=== PATIENT | female | born 1980 | race Caucasian/White ===

== ENCOUNTER → 2017-03-22 | Outpatient (CLI) | payer OTHER ==
[~2017-03-22] MED LIST: ACET50TA PO; MACR100C43 PO; VICO5TAB
--- NOTE | 2017-03-22 19:11 | REP ---
MR angiography the brain without contrast: History: Migraine . 20-year history of headaches. Positive family history of intracranial vascular abnormalities. Technique: 3-D [id number] MR angiography of the brain is acquired in the usual fashion and maximal intensity projection images were generated in rotational format about the vertical and horizontal axes. In addition, source axial T1-weighted images are viewed in cine mode. MR angiographic findings: The distal vertebral arteries are patent and co-dominant. Basilar artery is a little tortuous but widely patent. The posterior cerebral and superior cerebellar vessels are normal and symmetric. The distal internal carotid arteries are unremarkable. Anterior and middle cerebral arteries appear intact. There is no visible amos aneurysm or arteriovenous malformation. Impression: Unremarkable MR angiography the brain. Signed by Matthew Barry MD 03/22/2017 07:03 P
== END ==
LOC: M RAD 17:29
PROVIDERS: ATTEND Family Medicine
DX: G43.909 Migraine, unspecified, not intractable, without status migrainosus (principal)

== ENCOUNTER → 2017-11-19 | Outpatient (CLI) | payer OTHER | LOC: M RAD 12:36 | DX: N60.32 Fibrosclerosis of left breast (principal) | CPT/HCPCS: 77066 ==

== ENCOUNTER → 2019-08-12 | Outpatient (CLI) | payer OTHER ==
[~2019-08-12] MED LIST changes: -ACET50TA PO; +MAPA500T2 PO
--- NOTE | 2019-08-12 12:46 | REPMRS ---
Patient History The patient states she has not had a clinical breast exam in over a year. Family history of breast cancer at age 25 in mother, endometrial cancer in mother, breast cancer in maternal aunt, unknown cancer in father, ovarian cancer in paternal grandmother, ovarian cancer at age 40 in paternal aunt. Benign stereotatic breast biopsy of the right breast, August 27, 2012. Taking hormonal contraceptives for 4 years. Digital Mammo Screening Bilat: August 12, 2019 - Exam #: [id number] Bilateral CC and MLO view(s) were taken. Technologist: Rere Walsh, Technologist Prior study comparison: November 19, 2017, digital mammo diagnostic bilateral performed at [facility]. July 23, 2012, digital mammo diagnostic bilateral performed at [facility]. July 23, 2012, bilateral breast real time ultrasound performed at [facility]. August 30, 2011, bilateral digital mammo screening bilat performed at [facility]. FINDINGS: There are scattered fibroglandular densities. There is a needle biopsy marker clip again noted projecting in the upper outer quadrant of the right breast. There is a 5 mm neodensity projecting in the upper outer quadrant of the left breast which merits further evaluation. There has been no change in the appearance of the mammogram from the prior studies. There is a mild amount of scattered fibroglandular density which is fairly symmetric. There is no interval development of dominant mass, architectural distortion, or grouped microcalcification suggestive of malignancy. Assessment: BI-RADS/ACR category 0 mammogram, Incomplete: Need additional imaging evaluation and/or prior mammograms for comparison. Recommendation Ultrasound and special view mammogram of the left breast. This patient's Lifetime Breast Cancer Risk is estimated at 31.6 %. Annual screening Breast MRI scanniing is recommended for patient's whose lifetime risk assessment is over 20%. This mammogram was interpreted with the aid of an FDA-approved computer-aided dectection system. Breast MRI of both breasts in 6 months. Electronically Signed By: Casper Barry MD 08/12/19 [id number]
== END ==
LOC: M RAD 10:19
PROVIDERS: ATTEND Nurse Practitioner Primary Care
DX: Z12.31 Encounter for screening mammogram for malignant neoplasm of breast (principal); Z80.3 Family history of malignant neoplasm of breast; Z79.899 Other long term (current) drug therapy

== ENCOUNTER → 2019-08-28 | Outpatient (CLI) | payer OTHER ==
--- NOTE | 2019-08-28 11:49 | REP ---
Digital diagnostic unilateral left breast mammography with CAD, 3-D tomography, and focused left breast sonography. Findings: Screening mammography from August 24, 2019 was BIRADS category 0 incomplete because of a nodular neodensity 5 mm in diameter projecting in the upper outer quadrant. Diagnostic imaging was recommended. Mammographic findings: Magnified focal spot images of the left breast were obtained along with a true mediolateral projection with tomography. A 5 mm well circumscribed relatively low density nodule persists in the upper outer quadrant. No other mammographic finding. Sonographic findings: The left breast is scanned from 12 o'clock to 3 o'clock through the upper outer quadrant. There is a 5 mm oval-shaped cyst visible at 1 o'clock which is felt to account for the mammographic opacity. Heterogeneous fibroglandular background echotexture is seen. No other significant sonographic finding. Impression: BIRADS 2: BI-RADS/ACR category 2 mammogram. Benign Findings. Simple cyst identified in the left breast upper outer quadrant felt to account for the mammographic opacity. Repeat screening bilateral mammography recommended 1 year. This mammogram was interpreted with the aid of an FDA-approved computer-aided detection system. The patient states that she/he has not had a clinical breast exam in over a year. The patient letter being requested is m1. Electronically Signed by Matthew Barry MD 08/28/2019 06:36 P
== END ==
LOC: M RAD 09:10
PROVIDERS: ATTEND Nurse Practitioner Primary Care
DX: R92.2 Inconclusive mammogram (principal)

== ENCOUNTER → 2020-12-28 | Outpatient (CLI) | payer OTHER ==
--- NOTE | 2020-12-28 14:19 | REPMRS ---
Patient History The patient states she has not had a clinical breast exam in over a year. Family history of breast cancer at age 25 in mother, endometrial cancer in mother, breast cancer in maternal aunt, unknown cancer in father, ovarian cancer in paternal grandmother, ovarian cancer at age 40 in paternal aunt. Benign stereotatic breast biopsy of the right breast, August 27, 2012. Taking hormonal contraceptives for 4 years. Patient states no breast complaints today. Patient has signed MRS History Sheet. Digital Woman Screen Mammo: December 28, 2020 - Exam #: [id number] Bilateral CC and MLO view(s) were taken. Technologist: Rere Walsh, Technologist Prior study comparison: August 28, 2019, left breast digital mammo diagnostic unilateral, performed at [facility]. August 12, 2019, bilateral digital mammo screening bilat, performed at [facility]. November 19, 2017, digital mammo diagnostic bilateral, performed at [facility]. July 23, 2012, digital mammo diagnostic bilateral, performed at [facility]. FINDINGS: There are scattered fibroglandular densities. The Volpara volumetric breast density category is:B. Previously noted left breast cyst is again seen unchanged. A marker clip is again noted in the right breast. There has been no change in the appearance of the mammogram from the prior studies. There is a mild amount of scattered fibroglandular density which is fairly symmetric. There is no interval development of dominant mass, architectural distortion, or grouped microcalcification suggestive of malignancy. 3-D tomosynthesis shows no additional findings. Assessment: BI-RADS/ACR category 2 mammogram. Benign Findings. Recommendation Breast MRI of both breasts in 6 months. Routine screening mammogram of both breasts in 1 year (for women over age 40). This patient's [facility] Lifetime Breast Cancer Risk is estimated at 30.4 %. Patients whose estimated lifetime breast cancer risk assessment is greater than 20% merit annual screening breast MRI scanning in addition to annual mammography. This mammogram was interpreted with the aid of an FDA-approved computer-aided dectection system. Electronically Signed By: Casper Barry MD 12/28/20 [id number]
== END ==
LOC: M WHC 11:18
PROVIDERS: ATTEND Nurse Practitioner Primary Care
DX: Z12.31 Encounter for screening mammogram for malignant neoplasm of breast (principal); Z80.3 Family history of malignant neoplasm of breast

== ENCOUNTER 2021-04-13 10:37 | Emergency (ER) | payer OTHER ==
[~2021-04-13] VITALS: Ht 154.9 cm; Wt 64.0 kg
[2021-04-13] MEDS ORDERED: ZYRTTAB8 PO (11:01)
[2021-04-13] MEDS ORDERED: TOPI50TA9 (11:01)
[2021-04-13] MEDS ORDERED: TOPI100T9 (11:01)
[2021-04-13] MEDS ORDERED: PERCOCET 5MG/325MG TAB PO ONE (17:00)
[2021-04-13] MEDS ORDERED: ONDANSETRON 4MG/2ML VIAL IV ONE (17:00)
[2021-04-13] MEDS ORDERED: NS 1,000 ML IV ONE (17:00)
[2021-04-13 17:40] LABS: BASO # 0.1 10^3/uL (0.0-0.2); EOS # 0.2 10^3/uL (0.0-0.5); EOS % 1.6 % (0.0-3.0); HEMATOCRIT 49.6 % (36.0-47.0); HEMOGLOBIN 16.4 g/dl (12.0-15.5); LYMPH # 2.7 10^3/uL (1.5-5.0); LYMPH % 28.1 % (24.0-44.0); MEAN CORPUSCULAR HEMOGLOBIN 31.1 pg (27.0-33.0); MEAN CORPUSCULAR HGB CONC 33.1 g/dl (32.0-36.5); MEAN CORPUSCULAR VOLUME 94.1 fl (80.0-96.0); MONO # 0.5 10^3/uL (0.0-0.8); MONO % 5.2 % (2.0-8.0); NEUTROPHILS # 6.1 10^3/uL (1.5-8.5); NEUTROPHILS % 63.7 % (36.0-66.0); PLATELET COUNT, AUTOMATED 309 10^3/uL (150-450); RED BLOOD COUNT 5.27 10^6/uL (4.00-5.40); WHITE BLOOD COUNT 9.6 10^3/uL (4.0-10.0)
--- NOTE | 2021-04-13 18:14 | REPVR ---
PROCEDURE INFORMATION: Exam: CT Head Without Contrast Exam date and time: 04/13/2021 5:26 PM Age: 40 years old Clinical indication: Other: Headache/blurred vision TECHNIQUE: Imaging protocol: Computed tomography of the head without contrast. Radiation optimization: All CT scans at this facility use at least one of these dose optimization techniques: automated exposure control; mA and/or kV adjustment per patient size (includes targeted exams where dose is matched to clinical indication); or iterative reconstruction. COMPARISON: MRA BRAIN W/O CONTRAST 03/22/2017 5:35 PM FINDINGS: Brain: No acute intracranial hemorrhage, cerebral edema, or midline shift. Cerebral ventricles: No hydrocephalus. Paranasal sinuses: There is no acute sinusitis. Mastoid air cells: Visualized mastoid air cells are well aerated. Orbital cavity: Unremarkable as visualized. Bones/joints: No acute fracture. Soft tissues: Unremarkable. IMPRESSION: No acute intracranial abnormality. Electronically signed by: Sherif Ramos On 04/13/2021 18:14:13 PM
[2021-04-13 18:18] VITALS: BP 127/80
[2021-04-13 18:21] LABS: ALBUMIN 4.1 GM/DL (3.2-5.2); ALT/SGPT 24 U/L (12-78); BILIRUBIN,DIRECT < 0.1 MG/DL (0.0-0.2); BILIRUBIN,TOTAL 0.6 MG/DL (0.2-1.0); BLOOD UREA NITROGEN 8 MG/DL (7-18); C REACTIVE PROTEIN QUANTITATIV 0.45 MG/DL (0.00-0.30); CALCIUM LEVEL 9.5 MG/DL (8.5-10.1); CARBON DIOXIDE LEVEL 27 MEQ/L (21-32); CHLORIDE LEVEL 106 MEQ/L (98-107); CREATININE FOR GFR 0.66 MG/DL (0.55-1.30); FREE T4 0.91 NG/DL (0.76-1.46); GLOMERULAR FILTRATION RATE > 60.0 (>58); GLUCOSE, FASTING 73 MG/DL (70-100); MAGNESIUM LEVEL 2.5 MG/DL (1.8-2.4); POTASSIUM SERUM 4.5 MEQ/L (3.5-5.1); SODIUM LEVEL 136 MEQ/L (136-145)
[2021-04-13 18:22] LABS: ERYTHROCYTE SEDIMENTATION RATE 8 mm/hr (0-20)
[2021-04-13 18:26] LABS: FOLATE 16.4 NG/ML (>5.4); PERCENT SATURATION 33.9 % (13.2-45.0)
== END 2021-04-13 19:37 | disposition home or self-care (01) ==
LOC: M ED 10:37
DX: R51.9 Headache, unspecified (principal); H53.8 Other visual disturbances; F32.9 Major depressive disorder, single episode, unspecified; Z88.0 Allergy status to penicillin; Z88.6 Allergy status to analgesic agent; J30.2 Other seasonal allergic rhinitis; Z79.899 Other long term (current) drug therapy
CPT/HCPCS: 70450; 80048; 80076; 82607; 82728; 82746; 83550; 83735; 84439; 84443; 85025; 85652; 86140; 96361; 96374; 99284; J2405

== ENCOUNTER → 2022-01-08 | Outpatient (CLI) | payer OTHER ==
[~2022-01-08] MED LIST changes: +TOPI100T9; +TOPI50TA9; +ZYRTTAB8 PO
== END ==
LOC: M WHC 09:32
PROVIDERS: ATTEND Family Medicine
DX: Z12.31 Encounter for screening mammogram for malignant neoplasm of breast (principal)

== ENCOUNTER 2022-04-14 13:57 | Emergency (ER) | payer OTHER ==
[~2022-04-14] VITALS: Ht 165.1 cm; Wt 65.9 kg
[2022-04-14 15:18] LABS: RSV AMPLIFICATION NEGATIVE (NEGATIVE)
[2022-04-14] MEDS ORDERED: KETOROLAC 30 MG/ML 1ML VIAL IV ONE (16:50)
[2022-04-14] MEDS ORDERED: ONDANSETRON 4MG 2ML VIAL IV ONE (16:50)
[2022-04-14] MEDS ORDERED: NS 1,000 ML IV ONE (16:50)
[2022-04-14] MEDS ORDERED: dexameTHASONE 20MG/5ML VIAL (J1100 PER 1MG) IV ONE (16:50)
[2022-04-14 17:08] VITALS: O2SAT 96
[2022-04-14] MEDS ORDERED: KETO10TAB PO (18:21)
[2022-04-14] MEDS ORDERED: BENZ200C70 PO (18:21)
[2022-04-14 18:44] VITALS: BP 114/63
== END 2022-04-14 19:08 | disposition home or self-care (01) ==
LOC: M ED 13:57
DX: U07.1 COVID-19 (principal); J30.2 Other seasonal allergic rhinitis; Z88.0 Allergy status to penicillin; Z88.6 Allergy status to analgesic agent; F17.200 Nicotine dependence, unspecified, uncomplicated; Z79.899 Other long term (current) drug therapy
CPT/HCPCS: 71045; 87631; 96361; 96374; 96375; 99284; J1100; J1885; J2405

== ENCOUNTER → 2024-12-10 | Outpatient (CLI) | payer OTHER ==
[~2024-12-10] MED LIST changes: +BENZ200C70 PO; +KETO10TAB PO; +TOPI-21; +TOPI-257; -TOPI100T9; -TOPI50TA9
== END ==
LOC: M WHC 09:55
PROVIDERS: ATTEND Internal Medicine
DX: Z12.31 Encounter for screening mammogram for malignant neoplasm of breast (principal); Z80.3 Family history of malignant neoplasm of breast; R92.323 Mammographic fibroglandular density, bilateral breasts; R92.8 Other abnormal and inconclusive findings on diagnostic imaging of breast

== ENCOUNTER → 2024-12-16 | Outpatient (CLI) | payer OTHER ==
[2024-12-21 23:59] LABS: PANCREATIC ELASTASE STOOL > 800 mcg/g (>200)
[2024-12-22 00:28] LABS: CALPROTECTIN STOOL 6 mcg/g (<50)
== END ==
LOC: M LAB 09:54
PROVIDERS: ATTEND Internal Medicine Gastroenterology
DX: R19.4 Change in bowel habit (principal)

== ENCOUNTER → 2024-12-24 | Outpatient (CLI) | payer OTHER | LOC: M WHC 08:50 | PROVIDERS: ATTEND Internal Medicine | DX: Z12.31 Encounter for screening mammogram for malignant neoplasm of breast (principal); R92.321 Mammographic fibroglandular density, right breast | CPT/HCPCS: 77065; G0279 ==